=== PATIENT | female | born 1960 | race Caucasian/White ===

== ENCOUNTER 2019-03-30 12:35 | Emergency (ER) | payer BC ==
[~2019-03-30] VITALS: Ht 170.2 cm; Wt 100.2 kg
[2019-03-30 13:31] VITALS: BP 113/64
[2019-03-30] MEDS ORDERED: ALBUTEROL SULFATE/IPRATROPIU 3 ML SOL IH ONE ×2 (13:40→14:30)
--- NOTE | 2019-03-30 13:50 | NUR ---
PATIENT IN [facility] AND RESPIRATORY DRUG GIVEN ORDERED ENCOURAGED PATIENT WITH ACKNOWLEDGEMENT FOR DEEP BREATHIG DURING THERAPY
--- NOTE | 2019-03-30 14:20 | NUR ---
PT TAKEN TO ER BED 06
--- NOTE | 2019-03-30 14:24 | NUR ---
PATIENT PRESENTS TO ED WITH C/O PERSISTANT HACKING COUGH WITH SOB X 03/12/2019 SEEN BY PMD 03/14/19 RX Judi MORRIS PACK--SHOT OF SOLUMEDROL, CONTINUES WITH COUGH AND WORSENING SOB FEVER CHILLS , RIB PAIN WITH COUGH, FULL CLEAR SPEECH WITH NOTABLE ACCESSORY MUSCLE USE, RHONCHI LUNG SOUNDS, HX--COPD, HTN, SHINGLES, NERVE DAMAGE . PATIENT STATES PAIN WHEN COUGHING /10 AT THIS TIME; VSS; PATIENT POSITIONED FOR COMFORT; HOB ELEVATED; BEDRAILS UP X2; BED DOWN. ER MD MADE AWARE OF PT STATUS.
--- NOTE | 2019-03-30 14:28 | NUR ---
Patient being evaluated by DR. GERONIMO at bedside.
--- NOTE | 2019-03-30 14:45 | NUR ---
INFLUENZA COLLECTED AND SENT TO LAB
--- NOTE | 2019-03-30 15:15 | NUR ---
RT AT BEDSIDE FOR BREATHING TREATMENT
[2019-03-30] MEDS ORDERED: methylPREDNISolone SS 125 MG/2 ML VIAL IM ONE (15:40)
--- NOTE | 2019-03-30 16:12 | NUR ---
Patient discharged with v/s stable. Written and verbal after care instructions given and explained. Patient alert, oriented and verbalized understanding of instructions. Ambulatory with steady gait. All questions addressed prior to discharge. ID band removed. Patient advised to follow up with PMD. Rx of pREDNISONE 50MG AND TAMIFLU 75MG was given. Patient educated on indication of medication including possible reaction and side effects. Opportunity to ask questions provided and answered.
[2019-03-30 16:13] VITALS: BP 110/67
== END 2019-03-30 16:12 | disposition home or self-care (01) ==
LOC: MED 12:35
DX: J10.1 Influenza due to other identified influenza virus with other respiratory manifestations (principal); J44.9 Chronic obstructive pulmonary disease, unspecified; I10 Essential (primary) hypertension
CPT/HCPCS: 71045; 87804; 94640; 96372; 99284; J2930; J7620; Q0092